=== PATIENT | male | born 1970 | race Caucasian/White ===

== ENCOUNTER 2016-11-14 19:17 | Emergency (ER) | payer OTHER ==
[2016-11-14 19:34] VITALS: BP 133/88; PULSE 76; TEMP 98; BMI 31.0
[2016-11-14] MEDS ORDERED: SODIUM CHLORIDE 1,000 ML IV STA (20:13)
[2016-11-14] MEDS ORDERED: KETOROLAC TROMETHAMINE 30 MG/1 ML VIAL IVPUSH ONE (20:13)
[2016-11-14] MEDS ORDERED: KETOROLAC TROMETHAMINE 30 MG/1 ML VIAL ONE (20:19)
--- NOTE | 2016-11-14 20:24 | PDOC ---
History of Present Illness - General History Source: Patient, Old Records Exam Limitations: No Limitations - History of Present Illness Initial Comments: 11/14/16 20:26 The patient is a 46 year old male, current smoker (1ppd), accompanied by family , with a past medical history HTN, hypercholesterolemia, borderline diabetes, COPD, CAD s/p NC (2009) s/p PCI, and stents x2 who presents to the Emergency Department with left upper quadrant pain since yesterday. The patient was driving when his pain began. His pain is worse when he coughs, sneezes, or moves. The patient took tylenol yesterday and symptoms resolved before worsening at 10 hours ago. He states that his pain is not worse when breathing. He denies nausea, vomiting, fever, diarrhea. <Barrie De La Cruz - Last Filed: 11/14/16 20:26> - General History Source: Patient Exam Limitations: No Limitations <Luis A Marie - Last Filed: 11/14/16 21:37> - General Chief Complaint: Pain Stated Complaint: LUQ PAIN Time Seen by Provider: 11/14/16 19:49 Past History <Barrie De La Cruz - Last Filed: 11/14/16 20:26> - Past Medical History Cardiac Disorders: Yes HTN: Yes Hypercholesterolemia: Yes - Surgical History Cardiac Surgery: Yes (STENTS X 2) - Immunization History Immunization Up to Date: Yes - Psycho/Social/Smoking Cessation Hx Anxiety: No Suicidal Ideation: No Smoking History: Current every day smoker Have you smoked in the past 12 months: Yes Number of Cigarettes Smoked Daily: 20 Information on smoking cessation initiated: Yes 'Breaking Loose' booklet given: 04/09/16 Hx Alcohol Use: Yes Drug/Substance Use Hx: No Substance Use Type: None <Luis A Marie - Last Filed: 11/14/16 21:37> - Past Medical History Allergies/Adverse Reactions: Allergies Allergy/AdvReac Type Severity Reaction Status Date / Time No Known Allergies Allergy Verified 11/14/16 19:27 Home Medications: Ambulatory Orders Metoprolol Tartrate [Lopressor -] 25 mg PO DAILY 01/12/14 Valsartan [Diovan] 40 mg PO DAILY 01/12/14 Aspirin [ASA -] 81 mg PO DAILY tab.chew 12/25/14 Clopidogrel Bisulfate [Plavix -] 75 mg PO DAILY tablet 12/25/14 Rosuvastatin [Crestor -] 20 mg PO HS tablet 12/25/14 Albuterol Sulfate Inhaler - [Ventolin HFA Inhaler -] 1 - 2 inh PO QID #2 inhaler 04/09/16 Methylprednisolone [Medrol Dose Tommy] 4 mg PO ASDIR #21 tablet 04/09/16 Benzonatate [Tessalon Pearls -] 100 mg PO TID PRN #21 capsule 11/14/16 Naproxen [Naprosyn -] 500 mg PO BID PRN #14 tablet 11/14/16 Review of Systems - Review of Systems Able to Perform ROS?: Yes Comments:: 11/14/16 20:26 GENERAL/CONSTITUTIONAL: No fever or chills. No weakness. HEAD, EYES, EARS, NOSE AND THROAT: No change in vision. No ear pain or discharge. No sore throat. CARDIOVASCULAR: No chest pain or shortness of breath. RESPIRATORY: No cough, wheezing, or hemoptysis. GASTROINTESTINAL: (+) Left upper quadrant pain. No nausea, vomiting, diarrhea or constipation. GENITOURINARY: No dysuria, frequency, or change in urination. MUSCULOSKELETAL: No joint or muscle swelling or pain. No neck or back pain. SKIN: No rash NEUROLOGIC: No headache, vertigo, loss of consciousness, or change in strength/ sensation. ENDOCRINE: No increased thirst. No abnormal weight change. HEMATOLOGIC/LYMPHATIC: No anemia, easy bleeding, or history of blood clots. ALLERGIC/IMMUNOLOGIC: No hives or skin allergy. <Barrie De La Cruz - Last Filed: 11/14/16 20:26> *Physical Exam - Vital Signs Last Vital Signs Temp Pulse Resp BP Pulse Ox 98.0 F 76 16 133/88 96 11/14/16 19:19 11/14/16 19:19 11/14/16 19:19 11/14/16 19:19 11/14/16 19:19 - Physical Exam Comments: 11/14/16 20:26 GENERAL: Awake, alert, and fully oriented, in no acute distress HEAD: No signs of trauma EYES: PERRLA, EOMI, sclera anicteric, conjunctiva clear ENT: Auricles normal inspection, hearing grossly normal, nares patent, oropharynx clear without exudates. Moist mucosa NECK: Normal ROM, supple, no lymphadenopathy, JVD, or masses LUNGS: Breath sounds equal, clear to auscultation bilaterally. No wheezes, and no crackles HEART: Regular rate and rhythm, normal S1 and S2, no murmurs, rubs or gallops ABDOMEN: (+) Soft, LUQ tenderness to palpation. normoactive bowel sounds. No guarding, no rebound. No masses EXTREMITIES: Normal range of motion, no edema. No clubbing or cyanosis. No cords, erythema, or tenderness NEUROLOGICAL: Cranial nerves II through XII grossly intact. Normal speech, normal gait SKIN: Warm, Dry, normal turgor, no rashes or lesions noted. <Barrie De La Cruz - Last Filed: 11/14/16 20:26> - Vital Signs Last Vital Signs Temp Pulse Resp BP Pulse Ox 98.0 F 76 16 133/88 96 11/14/16 19:19 11/14/16 19:19 11/14/16 19:19 11/14/16 19:19 11/14/16 19:19 <Luis A Marie - Last Filed: 11/14/16 21:37> Heart Score/ECG Review #1 ECG reviewed & interpreted by me at: 19:20 11/14/16 20:40 NSR 74, no std/radha, normal axis, normal intervals, QTC 432 msec. <Luis A Marie - Last Filed: 11/14/16 21:37> ED Treatment Course - LABORATORY CBC & Chemistry Diagram: 11/14/16 20:15 11/14/16 20:15 - Medications Given in the ED: ED Medications Discontinued Medications Generic Name Dose Route Start Last Admin Trade Name Freq PRN Reason Stop Dose Admin Ketorolac Tromethamine 30 mg 11/14/16 20:13 11/14/16 20:22 Toradol Injection - IVPUSH 11/14/16 20:14 30 mg ONCE ONE Administration <Barrie De La Cruz - Last Filed: 11/14/16 20:26> - LABORATORY CBC & Chemistry Diagram: 11/14/16 20:15 11/14/16 20:15 - RADIOLOGY Radiology Studies Ordered: Category Date Time Status CHEST PA & LAT [RAD] Stat Radiology 11/14/16 20:13 Ordered - Medications Given in the ED: ED Medications Discontinued Medications Generic Name Dose Route Start Last Admin Trade Name Freq PRN Reason Stop Dose Admin Ketorolac Tromethamine 30 mg 11/14/16 20:13 11/14/16 20:22 Toradol Injection - IVPUSH 11/14/16 20:14 30 mg ONCE ONE Administration <Luis A Marie - Last Filed: 11/14/16 21:37> Medical Decision Making - Medical Decision Making 11/14/16 20:40 A portion of this note was documented by scribe services under my direction. I have reviewed the details of the note, within reason, and agree with the documentation with the following case summary and management plan written by me. Patient treated in the ED. Nursing notes are reviewed and incorporated into the medical decision-making. Vital signs reviewed. Peripheral IV access obtained by the nurse, laboratory studies are drawn and sent, reviewed and interpreted by myself. Vital Signs Temp Pulse Resp BP Pulse Ox 98.0 F 76 16 133/88 96 11/14/16 19:19 11/14/16 19:19 11/14/16 19:19 11/14/16 19:19 11/14/16 19:19 46-year-old male with history of hypertension, diabetes, hyperlipidemia, coronary disease status post stents, current smoker presents to the emergency department for left upper quadrant left lower ribs pain since yesterday. Patient was driving his car when he noticed his onset of symptoms. Denies midsternal chest pain or shortness of breath. States that when he palpates his belly or when he moves, it worsens the pain. When he rests completely still, the patient's pain is significantly improved. Denies diarrhea, nausea, vomiting or diaphoresis. This is very unlikely to be acute coronary syndrome or NC at this time. I suspect this is most likely muscle skeletal. The patient is coughing intermittently which exacerbates the pain. We'll obtain a chest x-ray, labs including lipase and treat with IV fluids, Toradol and GERD medications and reassess. 11/14/16 21:33 CBC, BMP 11/14/16 20:15 11/14/16 20:15 CMP Sodium 136 mmol/L (136-145) 11/14/16 20:15 Potassium 3.7 mmol/L (3.5-5.1) 11/14/16 20:15 Chloride 104 mmol/L (98-107) 11/14/16 20:15 Carbon Dioxide 26 mmol/L (22-28) 11/14/16 20:15 Anion Gap 6 (8-16) L 11/14/16 20:15 BUN 13 mg/dl (7-18) 11/14/16 20:15 Creatinine 1.0 mg/dl (0.6-1.3) 11/14/16 20:15 Creat Clearance w eGFR > 60 (>60) 11/14/16 20:15 Random Glucose 105 mg/dl (74-106) 11/14/16 20:15 Calcium 9.3 mg/dl (8.4-10.2) 11/14/16 20:15 Total Bilirubin 0.7 mg/dl (0.2-1.0) 11/14/16 20:15 AST 31 U/L (10-42) 11/14/16 20:15 ALT 47 U/L (10-40) H 11/14/16 20:15 Alkaline Phosphatase 37 U/L (32-92) 11/14/16 20:15 Creatine Kinase 336 IU/L (38-174) H 11/14/16 20:15 CK-MB (CK-2) 4.1 ng/ml (0.3-4.0) H 11/14/16 20:15 CK-MB (CK-2) Rel Index 1.2 % (0.0-5.0) 11/14/16 20:15 Troponin I < 0.03 ng/ml (0.03-0.50) L 11/14/16 20:15 Total Protein 6.9 g/dl (6.4-8.3) 11/14/16 20:15 Albumin 4.2 g/dl (3.5-5.0) 11/14/16 20:15 Lipase 37 U/L (22-51) 11/14/16 20:15 Chest x-ray reviewed by me, pending official radiology read. No acute findings. Patient reports again relief with Toradol. The patient does state that he's been having a cough for one week and the coughing is worse in the pain. After reviewing the case, I suspect that the patient has costochondritis. Supportive care, antitussives and follow-up with PMD. Smoking cessation counseling given. I discussed the physical exam findings, ancillary test results and final diagnoses with the patient. I answered all of the patient's questions. The patient was satisfied with the care received and felt comfortable with the discharge plan and treatment plan. The patient will call their primary care physician within 24 hours to arrange follow-up and will return to the Emergency Department with any new, persistant or worsening symptoms. <Luis A Marie - Last Filed: 11/14/16 21:37> *DC/Admit/Observation/Transfer - Attestations Scribe Attestion: 11/14/16 20:26 Documentation prepared by Barrie De La Cruz, acting as chief medical officer for Luis A Marie MD. <Barrie De La Cruz - Last Filed: 11/14/16 20:26> - Discharge Dispostion Admit: No <Luis A Marie - Last Filed: 11/14/16 21:37> Diagnosis at time of Disposition: Costochondritis - Discharge Dispostion Disposition: HOME Condition at time of disposition: Good - Prescriptions Prescriptions: Naproxen [Naprosyn -] 500 mg PO BID PRN #14 tablet PRN Reason: Pain Benzonatate [Tessalon Pearls -] 100 mg PO TID PRN #21 capsule PRN Reason: Cough - Referrals Referrals: Esdras Hobson MD [Primary Care Provider] - - Patient Instructions Printed Discharge Instructions: DI for Costochondritis Additional Instructions: Your work appeared demonstrate no acute findings. Please take the medication as prescribed for symptom control. Take 100 mg of Tessalon Perles every 8 hours needed for cough. Take 500 mg of naproxen every 12 hours needed for pain. Follow -up with your doctor.
[2016-11-14] MEDS ORDERED: MAG HYDROX/AL HYDROX/SIMETH 30 ML UNIT-DOSE CUP PO ONE (20:39)
[2016-11-14] MEDS ORDERED: FAMOTIDINE 20 MG/50 ML IVPB 50 ML IVPB ONE ×2 (20:39→20:46)
[2016-11-14 20:44] LABS: ALBUMIN 4.2 g/dl (3.5-5.0); ALK PHOS 37 U/L (32-92); ANION GAP 6 (8-16); BASOPHIL 1.8 % (0-2.0); BILIRUBIN,TOTAL 0.7 mg/dl (0.2-1.0); CALCIUM 9.3 mg/dl (8.4-10.2); CO2 26 mmol/L (22-28); CPK(DFH) 336 IU/L (38-174); EOSINOPHIL 6.2 % (0-4.5); GLUCOSE,RANDOM 105 mg/dl (74-106); MCH 30.1 pg (25.7-33.7); MCHC 34.8 g/dl (32.0-35.9); MEAN CELL VOLUME 86.4 fl (80-96); MEAN PLT VOLUME 9.1 fl (7.5-11.1); NEUTROPHILS 38.7 % (42.8-82.8); PLATELET COUNT 264 K/MM3 (134-434); SGOT/AST 31 U/L (10-42); SGPT/ALT 47 U/L (10-40); TOT PROT 6.9 g/dl (6.4-8.3); WHITE BLOOD COUNT 6.4 K/mm3 (4.0-10.8)
[2016-11-14] MEDS ORDERED: MAG HYDROX/AL HYDROX/SIMETH 30 ML UNIT-DOSE CUP ONE (20:46)
[2016-11-14 21:03] LABS: TROPONIN I (DFP) < 0.03 ng/ml (0.03-0.50)
[2016-11-14 21:05] LABS: CK MB 4.1 ng/ml (0.3-4.0)
--- NOTE | 2016-11-17 09:24 | EKG ---
Test Reason : Blood Pressure : / mmHG Vent. Rate : 074 BPM Atrial Rate : 074 BPM P-R Int : 168 ms QRS Dur : 106 ms QT Int : 390 ms P-R-T Axes : 050 053 056 degrees QTc Int : 432 ms NORMAL SINUS RHYTHM POSSIBLE LEFT ATRIAL ENLARGEMENT WHEN COMPARED WITH ECG OF 24-DEC-2014 12:09, VENT. RATE HAS INCREASED BY 27 BPM Confirmed by MD GARCIA MARJORY ([id number]) on 11/17/2016 9:24:14 AM Referred By: DR RASHID Confirmed By:MARIA LUZ GARCIA MD
== END 2016-11-14 21:44 | disposition home or self-care (01) ==
LOC: FER 19:17
PROC: 3E033GC Introduction of Other Therapeutic Substance into Peripheral Vein, Percutaneous Approach (ICD-10-PCS; principal; 2016-11-14)
PROC: 3E0333Z Introduction of Anti-inflammatory into Peripheral Vein, Percutaneous Approach (ICD-10-PCS; 2016-11-14)
PROC: 3E0337Z Introduction of Electrolytic and Water Balance Substance into Peripheral Vein, Percutaneous Approach (ICD-10-PCS; 2016-11-14)
DX: M94.0 Chondrocostal junction syndrome [Tietze] (principal); F17.210 Nicotine dependence, cigarettes, uncomplicated; I10 Essential (primary) hypertension; E78.00 Pure hypercholesterolemia, unspecified; J44.9 Chronic obstructive pulmonary disease, unspecified; I25.10 Atherosclerotic heart disease of native coronary artery without angina pectoris; I25.2 Old myocardial infarction; Z95.5 Presence of coronary angioplasty implant and graft
CPT/HCPCS: 36415; 71020-TC; 80053; 82550; 82553; 83690; 84484; 85025; 93005; 99283-25

== ENCOUNTER 2018-06-19 14:51 | Emergency (ER) | payer OTHER ==
[2018-06-19 15:02] VITALS: BP 126/83; PULSE 62; TEMP 98.4; BMI 27.8
--- NOTE | 2018-06-19 15:47 | PDOC ---
History of Present Illness - General Chief Complaint: Ear Problem Stated Complaint: BLEEDING TO LEFT EAR, HEADACHE Time Seen by Provider: 06/19/18 15:22 History Source: Patient Exam Limitations: No Limitations - History of Present Illness Initial Comments: 47 yo M w a hx of HTN, HLD, GERD, BPH, borderline diabetes, COPD, CAD s/p NE ( 2009) s/p PCI, and stents x2 who presents to the [place] ED because he noticed blood dripping out of his left ear. He admits that about a year ago he had a tube placed in his ear to treat some residual fluid in the ear, however, he does not remember which ear the tube was in. He states that it was very hot in the house but it was bright red blood. He is not complaining of a headache, any LOC, and states he was not nauseous and did not vomit. He denies any SOB or changes in hearing. This has never happened to him before. He does endorse feeling mildly weak, tired, and is experiencing general lethargy. He denies any history of trauma or falling down at any point today. The patient admits that he has been experiencing a significant amount of stress at home and has been screaming a significant amount lately. He got into a heated argument with his sister which he believes is what caused his ear to bleed. Denies any fevers, chills, infections, chest pain, SOB, difficulty breathing, neck pain, headache, abdominal pain, nausea, vomiting, diarrhea, or constipation. Meds: Naproxyn, esomeprazole, aspirin, clopidogrel, Metoprolol, valsartan, Tamsulosin PCP: Esdras Hobson ENT: Dr. Alvarez in [facility]. PSH: 2 stents, nose deviated septum, tubes in ear - unsure which ear likely left , Left thumb surgery Allergies: NKA, NKDA Social Hx: Smokes 1 PPD for 35 years, recreational alcohol, denies other substance usage. Past History - Past Medical History Allergies/Adverse Reactions: Allergies Allergy/AdvReac Type Severity Reaction Status Date / Time No Known Allergies Allergy Verified 06/19/18 14:54 Home Medications: Ambulatory Orders Metoprolol Tartrate [Lopressor -] 25 mg PO DAILY 01/12/14 Valsartan [Diovan] 40 mg PO DAILY 01/12/14 Aspirin [ASA -] 81 mg PO DAILY tab.chew 12/25/14 Clopidogrel Bisulfate [Plavix -] 75 mg PO DAILY tablet 12/25/14 Naproxen/Esomeprazole Mag [Vimovo Dr 500-20 mg Tablet] 1 each PO DAILY 10/05/17 Tamsulosin HCl 0.4 mg PO DAILY 10/05/17 Amoxicillin - [Amoxicillin 500mg Capsule -] 500 mg PO BID #14 capsule 06/19/18 Ofloxacin Otic [Floxin Otic -] 3 drop AD DAILY 15 Days #1 bottle 06/19/18 Cardiac Disorders: Yes (stents, mi 2008) CVA: No COPD: No GI Disorders: No Disorders: No HTN: Yes Hypercholesterolemia: Yes Liver Disease: No Seizures: No Thyroid Disease: No - Surgical History Cardiac Surgery: Yes (STENTS X 2) - Immunization History Immunization Up to Date: Yes - Suicide/Smoking/Psychosocial Hx Smoking History: Current every day smoker Have you smoked in the past 12 months: Yes Number of Cigarettes Smoked Daily: 20 Information on smoking cessation initiated: Yes 'Breaking Loose' booklet given: 10/05/17 Hx Alcohol Use: (occasional) Drug/Substance Use Hx: No Substance Use Type: None Hx Substance Use Treatment: No Review of Systems - Review of Systems Able to Perform ROS?: Yes Comments:: CONSTITUTIONAL: Absent: fever, no chills, no fatigue EYES: Absent: visual changes ENT: Present: Ear pain Absent: no sore throat CARDIOVASCULAR: Absent: chest pain, no palpitations RESPIRATORY: Absent: cough, no SOB GI: Absent: abdominal pain, no nausea, no vomiting, no constipation, no diarrhea GENITOURINARY: Absent: dysuria, no frequency, no hematuria MUSKULOSKELETAL: Absent: back pain, no arthralgia, no myalgia SKIN: Absent: rash NEURO: Absent: headache *Physical Exam - Vital Signs Last Vital Signs Temp Pulse Resp BP Pulse Ox 98.4 F 62 18 126/83 98 06/19/18 14:51 06/19/18 14:51 06/19/18 14:51 06/19/18 14:51 06/19/18 14:51 - Physical Exam Comments: GENERAL: Well-appearing, well-nourished. No apparent distress. LEFT EAR: There is dried blood and the tympanic membrane is perforated. No TTP during otoscopy. HEENT: Normocephalic, atraumatic. PERRLA, EOMI. No conjunctival pallor. Sclera are non- icteric. Moist mucous membranes. Oropharynx is clear. CARDIOVASCULAR: Normal S1, S2. Regular rate and rhythm. PULMONARY: No evidence of respiratory distress. Lungs clear to auscultation bilaterally. No wheezing, rales or rhonchi. ABDOMEN: Soft, non-distended, non-tender. EXTREMITIES: Normal ROM in all four extremities. No gross deformities. SKIN: Warm, dry. No rash NEUROLOGICAL: No focal neurological deficits. Moderate Sedation - Procedure Monitoring Vital Signs: Procedure Monitoring Vital Signs Temperature 98.4 F 06/19/18 14:51 Pulse Rate 62 06/19/18 14:51 Respiratory Rate 18 06/19/18 14:51 Blood Pressure 126/83 06/19/18 14:51 O2 Sat by Pulse Oximetry (%) 98 06/19/18 14:51 Medical Decision Making - Medical Decision Making 47 yo M w a hx of HTN, HLD, GERD, BPH, borderline diabetes, COPD, CAD s/p NE ( 2009) s/p PCI, and stents x2 who presents to the [place] ED because he noticed blood dripping out of his left ear. He admits that about a year ago he had a tube placed in his ear to treat some residual fluid in the ear, however, he does not remember which ear the tube was in. He states that it was very hot in the house but it was bright red blood. He is not complaining of a headache, any LOC, and states he was not nauseous and did not vomit. He denies any SOB or changes in hearing. This has never happened to him before. He does endorse feeling mildly weak, tired, and is experiencing general lethargy. He denies any history of trauma or falling down at any point today. The patient admits that he has been experiencing a significant amount of stress at home and has been screaming a significant amount lately. He got into a heated argument with his sister which he believes is what caused his ear to bleed. VS: WNL. Tympanic membrane is perforated. DDx IBNLT: Tympanic membrane perforation. otitis media vs extrerna, mastoiditis , parotitis. Plan: Clean out ear canal, advise patient to apply cotton swabs, and administer ear drops and Abx, ENT follow up. - A large clot was removed from his ear canal which showed a visible perforation. Amoxicillin and ofloxacin drops sent to pharmacy. *DC/Admit/Observation/Transfer Diagnosis at time of Disposition: Perforated ear drum - Discharge Dispostion Disposition: HOME Condition at time of disposition: Stable Decision to Admit order: No - Prescriptions Prescriptions: Amoxicillin - [Amoxicillin 500mg Capsule -] 500 mg PO BID #14 capsule Ofloxacin Otic [Floxin Otic -] 3 drop AD DAILY 15 Days #1 bottle - Referrals Referrals: Esdras Hobson MD [Primary Care Provider] - Galileo Allen MD [Staff Physician] - - Patient Instructions Printed Discharge Instructions: DI for Tympanic Membrane Perforation-Adult Additional Instructions: You came into the ER with blood dripping from your ear. You have perforated your eardrum. Please see attached handout for further instructions. It is extremely important for you to schedule a follow up appointment with your ENT doctor in the next 24 to 48 hours. If you cannot see yours we are giving you the number of a different doctor you can call to see. Please purchase small cotton balls to place in your ear so the ear canal stays dry. We sent an oral antibiotic to your pharmacy and an antibiotic ear drop to your pharmacy. Please make sure to go and pick these up and take as prescribed. Come back to the ER if your pain worsens, you get a fever, become nauseous, or have any other new or worsening concerns. Thank you for coming to the [place] ER. We hope you feel better soon! Print Language: SLOVAK - Post Discharge Activity
[2018-06-19] MEDS ORDERED: AMOXICILLIN 500 MG CAPSULE (FP) PO ONE (16:36)
[2018-06-19] MEDS ORDERED: OFLOXACIN 0.3% OTIC SOLUTION 5 ML BOTTLE AS ONE (16:37)
--- NOTE | 2018-06-19 16:41 | PDOC ---
Attending Attestation - Resident Resident Name: Michael Hernandez - ED Attending Attestation I have performed the following: I have examined & evaluated the patient, The case was reviewed & discussed with the resident, I agree w/resident's findings & plan - HPI HPI: 06/19/18 16:36 47 yo M w a hx of HTN, HLD, GERD, BPH, borderline diabetes, COPD, CAD s/p PA ( 2009) s/p PCI, and stents x2 who presents to the [place] ED for left ear bleeding. He admits that about a year ago he had a tube placed in his ear to treat some residual fluid in the ear, however, he does not remember which ear the tube was in. He states that it was very hot in the house but it was bright red blood. He also notes he has been yelling and screaming at family members that has been increasing his stress levels in the last several days. diminished hearing from the affected hear. No trauma - Physicial Exam PE: 06/19/18 16:39 agree with resident note. NAD well appearing, EOMI, PERRL, hearing intact to fingers left ear with ruptured TM, blood in auditory canal, no tenderness to pinna manipulation. +blood behind the TM noted. neck supple. WWP, normal skin color. 06/19/18 16:40 - Medical Decision Making 06/19/18 16:40 hpi as documented VS wnl. perf TM, treat as AOM as well topical ofloxacin gtt 2-3 drops daily until closure. oral amoxicillin x 7 days for presumed AOM. ENT followup, referrals given, he has his own ENT as well who he will followup keep ears dry, put in cotton balls to avoid moisture. return precautions. DC in stable condition, pt made aware of impression and plan. avoid elevating intracranial/ear pressures that may have precipitated perf TM
[2018-06-19] MEDS ORDERED: AMOXICILLIN 250 MG CAPSULE ONE (16:48)
== END 2018-06-19 16:55 | disposition home or self-care (01) ==
LOC: FER 14:51
DX: H72.92 Unspecified perforation of tympanic membrane, left ear (principal); I10 Essential (primary) hypertension; E78.5 Hyperlipidemia, unspecified; K21.9 Gastro-esophageal reflux disease without esophagitis; N40.0 Benign prostatic hyperplasia without lower urinary tract symptoms; J44.9 Chronic obstructive pulmonary disease, unspecified; I25.2 Old myocardial infarction; Z95.5 Presence of coronary angioplasty implant and graft; F17.210 Nicotine dependence, cigarettes, uncomplicated
CPT/HCPCS: 99282-25

== ENCOUNTER 2019-12-01 05:38 | Day surgery (SDC) | payer BC ==
[2019-11-30 14:42] VITALS: BMI 27.3
--- NOTE | 2019-12-01 11:14 | HP ---
Admitting History and Physical - Admission Chief Complaint: Axial Neck Pain History of Present Illness: The pt present with axial neck pain secondary to cervical spondylosis. History Source: Patient - Past Medical History Cardiovascular: Yes: CAD, HTN, Hyperlipdemia. No: AFIB, Aneurysm, Aortic Insufficiency, Aortic Stenosis, CHF, Deep Vein Thrombosis, DE, Mitral Insufficiency, Mitral Stenosis, Murmur, Pulmonary Hypertension, Other - Smoking History Smoking history: Current every day smoker Have you smoked in the past 12 months: Yes Aproximately how many cigarettes per day: 20 - Alcohol/Substance Use Hx Alcohol Use: (occasional) Home Medications - Allergies Allergies/Adverse Reactions: Allergies Allergy/AdvReac Type Severity Reaction Status Date / Time No Known Allergies Allergy Verified 12/01/19 09:09 - Home Medications Home Medications: Ambulatory Orders Metoprolol Tartrate [Lopressor -] 25 mg PO DAILY 01/12/14 Clopidogrel Bisulfate [Plavix -] 75 mg PO DAILY tablet 12/25/14 Atorvastatin Ca [Lipitor] 80 mg PO HS 12/01/19 Lisdexamfetamine Dimesylate [Vyvanse] 70 mg PO DAILY 12/01/19 Paroxetine HCl 30 mg PO DAILY 12/01/19 Review of Systems - Review of Systems Constitutional: reports: No Symptoms Eyes: reports: No Symptoms HENT: reports: No Symptoms Neck: reports: No Symptoms Cardiovascular: reports: No Symptoms Respiratory: reports: No Symptoms Gastrointestinal: reports: No Symptoms Genitourinary: reports: No Symptoms Breasts: reports: No Symptoms Reported Musculoskeletal: reports: No Symptoms, Other (Neck PAIN) Integumentary: reports: No Symptoms Neurological: reports: No Symptoms Endocrine: reports: No Symptoms Hematology/Lymphatic: reports: No Symptoms Psychiatric: reports: No Symptoms Physical Examination Vital Signs: Vital Signs Temperature 98.0 F 12/01/19 09:06 Pulse Rate 65 12/01/19 09:06 Respiratory Rate 20 12/01/19 09:06 Blood Pressure 125/88 12/01/19 09:06 O2 Sat by Pulse Oximetry (%) 98 12/01/19 09:06 Constitutional: Yes: Well Nourished, No Distress, Calm Eyes: Yes: WNL, Conjunctiva Clear, EOM Intact HENT: Yes: WNL, Atraumatic, Normocephalic Neck: Yes: Trachea Midline Cardiovascular: Yes: Regular Rate and Rhythm Respiratory: Yes: WNL, Regular Gastrointestinal: Yes: WNL ...Rectal Exam: Yes: WNL Musculoskeletal: Yes: Back Pain Extremities: Yes: WNL Neurological: Yes: WNL ...Motor Strength: WNL Psychiatric: Yes: WNL Imaging - Results MRI: Image Reviewed Assessment/Plan The patients pain is secondary to cervical spondylosis. 1. I will perform right and Left C3 C4 C5 medial branch blocks.
[2019-12-01] MEDS ORDERED: LIDOCAINE 1% P/F 10 MG/ML VIAL INF ONE (11:47)
[2019-12-01] MEDS ORDERED: BUPIVACAINE HCL/PF 0.5% (5 MG/ML) 30 ML VIAL IJ ONE (11:48)
[2019-12-01 12:40] VITALS: BP 130/82; PULSE 60; TEMP 98
--- NOTE | 2019-12-06 14:04 | PROC ---
Procedure Note Procedure: Preprocedure Diagnosis: Cervical Spondylosis Post Procedure Diagnosis:same Anesthesia: local Procedure Performed: Right and Left C3 C4 C5 medial branch block under fluoroscopic guidance After the risks and benefits were explained, informed consent was obtained. The patient was then taken to the procedure room and positioned prone on the procedure table. Time out was performed. The region overlying the appropriate vertebral bodies was identified using fluoroscopy. The skin was prepped and draped in the usual sterile fashion. Using fluoroscopic guidance, 25 gauge 2.5 inch spinal needles were then introduced to the fossa at the center of the waists of the articular pillars where the BILATERAL C3, C4, and C5 medial branches are located. Omnipaque 180 confirmed appropriate needle placement. There was no epidural or vascular flow observed. .25 % bupivacaine was drawn into a syringe. 0.5cc of this solution was then injected at each level. The same procedure was repeated on the LEFT side at the same levels. The patient tolerated the procedure well and there were no complications. The patient was taken to the post procedure recovery area in good condition. Vital signs remained stable before, during, and after the procedure. The patient was given oral and written follow-up instructions. The patient was given a follow up appointment with me in the near future. Jamie King DO
== END 2019-12-01 12:41 | disposition home or self-care (01) ==
LOC: JASU-SURG 05:38
PROVIDERS: ATTEND Pain Medicine Pain Medicine
PROC: BR14YZZ Fluoroscopy of Cervical Facet Joint(s) using Other Contrast (ICD-10-PCS; 2019-12-01)
PROC: 3E0T3BZ Introduction of Anesthetic Agent into Peripheral Nerves and Plexi, Percutaneous Approach (ICD-10-PCS; principal; 2019-12-01 10:30)
DX: M47.892 Other spondylosis, cervical region (principal); I10 Essential (primary) hypertension; I25.10 Atherosclerotic heart disease of native coronary artery without angina pectoris; E78.5 Hyperlipidemia, unspecified; F17.210 Nicotine dependence, cigarettes, uncomplicated
CPT/HCPCS: 76000-TC-FY

== ENCOUNTER 2020-08-01 18:23 | Emergency (ER) | payer BC, OTHER ==
[2020-08-01 18:36] VITALS: BP 132/90; PULSE 77; TEMP 98.9; BMI 28.0
[2020-08-01] MEDS ORDERED: ACETAMINOPHEN 325 MG TABLET (FP) PO ONE (18:40)
[2020-08-01] MEDS ORDERED: ACETAMINOPHEN 325 MG TABLET (FP) ONE (18:43)
== END 2020-08-01 19:45 | disposition home or self-care (01) ==
LOC: FER 18:23
DX: S00.83XA Contusion of other part of head, initial encounter (principal); S43.92XA Sprain of unspecified parts of left shoulder girdle, initial encounter
CPT/HCPCS: 73030-TC-RT-FY; 99284-25

== ENCOUNTER 2021-07-04 04:33 | Day surgery (SDC) | payer BC, OTHER ==
[2021-06-20 14:19] VITALS: BMI 28.0
[2021-07-04] MEDS ORDERED: ROPIVACAINE HCL 0.5% 30ML VIAL ONE (10:30)
[2021-07-04] MEDS ORDERED: MIDAZOLAM HCL 2 MG/2 ML SINGLE DOSE VIAL ONE ×2 (10:31)
[2021-07-04] MEDS ORDERED: ONDANSETRON 4 MG/2 ML VIAL IVPUSH PRN (11:03)
[2021-07-04] MEDS ORDERED: DEXAMETHASONE SOD PHOSPHATE 4 MG/1 ML VIAL ONE (11:20)
[2021-07-04] MEDS ORDERED: ceFAZolin SODIUM 1 GM VIAL ONE (11:20)
[2021-07-04] MEDS ORDERED: PROPOFOL 20 ML ONE ×2 (11:29→11:44)
[2021-07-04] MEDS ORDERED: ceFAZolin SODIUM 1 GM VIAL IVPB ONE (11:38)
[2021-07-04] MEDS ORDERED: PHENYLEPHRINE HCL 10 MG/1 ML SINGLE DOSE VIAL ONE (11:57)
[2021-07-04 16:48] VITALS: BP 115/78; PULSE 78; TEMP 97.2
== END 2021-07-04 16:30 | disposition home or self-care (01) ==
LOC: JASU-SURG 04:33
PROVIDERS: ATTEND Orthopaedic Surgery
PROC: 0RHJ44Z Insertion of Internal Fixation Device into Right Shoulder Joint, Percutaneous Endoscopic Approach (ICD-10-PCS; 2021-07-04)
PROC: 0RNJ4ZZ Release Right Shoulder Joint, Percutaneous Endoscopic Approach (ICD-10-PCS; principal; 2021-07-04 11:30)
PROC: 0LM14ZZ Reattachment of Right Shoulder Tendon, Percutaneous Endoscopic Approach (ICD-10-PCS; 2021-07-04 11:30)
PROC: 0LS34ZZ Reposition Right Upper Arm Tendon, Percutaneous Endoscopic Approach (ICD-10-PCS; 2021-07-04 11:30)
DX: M75.101 Unspecified rotator cuff tear or rupture of right shoulder, not specified as traumatic (principal)
CPT/HCPCS: 94760

== ENCOUNTER 2021-11-27 06:23 | Day surgery (SDC) | payer BC, OTHER ==
[2021-11-25 15:47] VITALS: BMI 27.3
[2021-11-27 07:00] VITALS: RESP 16
[2021-11-27] MEDS ORDERED: LIDOCAINE HCL 1%, 10 MG/ML (20ML VIAL) ONE (07:22)
[2021-11-27] MEDS ORDERED: BUPIVACAINE HCL 50 ML ONE (07:22)
[2021-11-27] MEDS ORDERED: PROPOFOL 20 ML ONE (07:29)
[2021-11-27] MEDS ORDERED: MIDAZOLAM HCL 2 MG/2 ML SINGLE DOSE VIAL ONE (07:30)
[2021-11-27] MEDS ORDERED: SUCCINYLCHOLINE CHLORIDE 200 MG/10 ML SYRINGE ONE (07:30)
[2021-11-27 09:35] VITALS: TEMP 97.6
[2021-11-27 10:43] VITALS: BP 135/75; PULSE 54
== END 2021-11-27 10:10 | disposition home or self-care (01) ==
LOC: FASU 06:23
PROVIDERS: ATTEND Orthopaedic Surgery
PROC: 0LB60ZZ Excision of Left Lower Arm and Wrist Tendon, Open Approach (ICD-10-PCS; 2021-11-27)
PROC: 0LB60ZZ Excision of Left Lower Arm and Wrist Tendon, Open Approach (ICD-10-PCS; 2021-11-27)
PROC: 0LB60ZZ Excision of Left Lower Arm and Wrist Tendon, Open Approach (ICD-10-PCS; 2021-11-27)
PROC: 0LB60ZZ Excision of Left Lower Arm and Wrist Tendon, Open Approach (ICD-10-PCS; 2021-11-27)
PROC: 0LB60ZZ Excision of Left Lower Arm and Wrist Tendon, Open Approach (ICD-10-PCS; 2021-11-27)
PROC: 0LB60ZZ Excision of Left Lower Arm and Wrist Tendon, Open Approach (ICD-10-PCS; 2021-11-27)
PROC: 0LB60ZZ Excision of Left Lower Arm and Wrist Tendon, Open Approach (ICD-10-PCS; 2021-11-27)
PROC: 0LB60ZZ Excision of Left Lower Arm and Wrist Tendon, Open Approach (ICD-10-PCS; 2021-11-27)
PROC: 0LB60ZZ Excision of Left Lower Arm and Wrist Tendon, Open Approach (ICD-10-PCS; 2021-11-27)
PROC: 01N50ZZ Release Median Nerve, Open Approach (ICD-10-PCS; principal; 2021-11-27 08:17)
DX: G56.02 Carpal tunnel syndrome, left upper limb (principal); M65.832 Other synovitis and tenosynovitis, left forearm
CPT/HCPCS: 88304-TC

== ENCOUNTER 2021-12-07 20:01 | Observation (INO) | payer BC ==
[2021-12-07 21:04] LABS: HEMATOCRIT 36.8 % (35.4-49); MCH 29.6 pg (25.7-33.7); MCHC 35.2 g/dl (32.0-35.9); MEAN PLT VOLUME 8.9 fl (7.5-11.1); PLATELET COUNT 200.1 10^3/uL (134-434); RBC 4.38 10^6/uL (4.00-5.60); RDW 15.3 % (11.9-15.9); WHITE BLOOD COUNT 5.6 10^3/uL (4.0-10.8)
[2021-12-07 21:12] LABS: INR 1.02 (0.83-1.09); PROTHROMBIN TIME (PATIENT) 11.7 SEC (9.7-13.0)
[2021-12-07 21:15] LABS: ACTIVATED PTT 30.5 SECONDS (25.2-36.5)
[2021-12-07 21:19] LABS: ALBUMIN 4.1 g/dl (3.4-5.0); CALCIUM 9.2 mg/dl (8.5-10); CREATININE 0.8 mg/dl (0.55-1.3); TOT PROT 7.2 g/dl (6.4-8.2)
[2021-12-07] MEDS ORDERED: ACETAMINOPHEN 1000 MG/100 ML BAG IVPB ONE (23:41)
[2021-12-07] MEDS ORDERED: ACETAMINOPHEN INJECTION 100 ML IVPB ONE (23:45)
[2021-12-08] MEDS ORDERED: ACETAMINOPHEN 325 MG TABLET (FP) PO PRN (01:54)
[2021-12-08 02:03] LABS: EOS % 1.9 % (0-4.5); HEMATOCRIT 36.9 % (35.4-49); HEMOGLOBIN 12.3 GM/dL (11.7-16.9); LYMPH % 44.5 % (8-40); MCHC 33.5 g/dl (32.0-35.9); MEAN CELL VOLUME 83.6 fl (80-96); MEAN PLT VOLUME 9.3 fl (7.5-11.1); MONO % 8.5 % (3.8-10.2); NEUT % 45.1 % (42.8-82.8); PLATELET COUNT 199 10^3/uL (134-434); RBC 4.41 M/mm3 (4.00-5.60); RDW 14.7 % (11.9-15.9)
[2021-12-08 04:58] VITALS: BMI 26.9
[2021-12-08 08:13] LABS: CALCIUM 9.1 mg/dl (8.5-10); CREATININE 0.8 mg/dl (0.55-1.3)
[2021-12-08] MEDS ORDERED: ASPIRIN 81 MG CHEWABLE TABLETS PO SCH (10:00)
[2021-12-08] MEDS ORDERED: METOPROLOL TARTRATE 25 MG TABLET (FP) PO SCH ×2 (10:00)
[2021-12-08] MEDS ORDERED: LOSARTAN POTASSIUM 25 MG TABLET PO SCH (10:00)
[2021-12-08] MEDS ORDERED: NICOTINE 21 MG/24 HOURS TOPICAL PATCH TD SCH (10:00)
[2021-12-08] MEDS ORDERED: PANTOPRAZOLE 20 MG TABLET PO SCH (10:00)
[2021-12-08] MEDS ORDERED: LISDEXAMFETAMINE DIMESYLATE 70 MG PO SCH (10:00)
[2021-12-08 10:07] LABS: BASO % 0.2 % (0-2.0); HEMATOCRIT 38.4 % (35.4-49); HEMOGLOBIN 12.8 GM/dL (11.7-16.9); LYMPH % 33.6 % (8-40); MCH 27.8 pg (25.7-33.7); MCHC 33.3 g/dl (32.0-35.9); MEAN CELL VOLUME 83.4 fl (80-96); MEAN PLT VOLUME 9.3 fl (7.5-11.1); MONO % 7.1 % (3.8-10.2); NEUT % 57.1 % (42.8-82.8); PLATELET COUNT 191 10^3/uL (134-434); RDW 14.8 % (11.9-15.9); WHITE BLOOD COUNT 7.2 K/mm3 (4.0-10.0)
[2021-12-08 18:06] VITALS: BP 127/78; PULSE 59; RESP 19; TEMP 99.8
[2021-12-08] MEDS ORDERED: D5-1/2NS+20 MEQ KCL - 20 MEQ/1,000 ML INFUS.BAG IV SCH (18:15)
[2021-12-08] MEDS ORDERED: CEFUROXIME AXETIL 500 MG TABLET PO SCH (22:00)
[2021-12-08] MEDS ORDERED: ATORVASTATIN CA 20 MG TABLET (FP) PO SCH (22:00)
== END 2021-12-08 19:08 | disposition home or self-care (01) ==
LOC: FER 20:01 → FM/S 21:59 → INTOOBSV 12-08 04:28 → UNDOADMOB 12-08 04:28
PROVIDERS: ADMIT Hospitalist; ATTEND Family Medicine
PROC: 3E033NZ Introduction of Analgesics, Hypnotics, Sedatives into Peripheral Vein, Percutaneous Approach (ICD-10-PCS; principal; 2021-12-07)
DX: R31.9 Hematuria, unspecified (principal); N20.0 Calculus of kidney; I25.10 Atherosclerotic heart disease of native coronary artery without angina pectoris; I11.9 Hypertensive heart disease without heart failure; N13.30 Unspecified hydronephrosis; R04.2 Hemoptysis; F17.210 Nicotine dependence, cigarettes, uncomplicated
CPT/HCPCS: 36415; 71275-TC; 74174-TC; 80048; 80053; 81003; 81015; 82272; 84484; 85025; 85027; 85362; 85379; 85384; 85610; 85670; 85730; 86850; 86900; 86901; 87086; 93005; 96374; 99285-25; C9803-CS; G0378; Q9967; U0003; U0005

== ENCOUNTER 2022-11-07 21:53 | Emergency (ER) | payer BC ==
[2022-11-07 22:01] VITALS: BP 110/70; PULSE 80; RESP 16; TEMP 98.2; BMI 27.0
[2022-11-07 23:22] LABS: HEMATOCRIT 36.3 % (35.4-49); HEMOGLOBIN 12.4 G/dL (11.7-16.9); MCH 30.4 pg (25.7-33.7); MCHC 34.1 g/dl (32.0-35.9); MEAN PLT VOLUME 9.2 fl (7.5-11.1); PLATELET COUNT 175.3 10^3/uL (134-434); RBC 4.08 10^6/uL (4.00-5.60); RDW 14.5 % (11.9-15.9); WHITE BLOOD COUNT 5.1 10^3/uL (4.0-10.8)
[2022-11-07 23:38] LABS: ALBUMIN 4.2 g/dl (3.4-5.0); BILIRUBIN,TOTAL 0.6 mg/dl (0.2-1); BLOOD UREA NITROGEN 12.3 mg/dl (7-18); CREATININE 0.9 mg/dl (0.6-1.3); POTASSIUM 3.6 mmol/L (3.5-5.1); SGOT/AST 29.7 U/L (15-37); SGPT/ALT 38.4 U/L (7-52); TOT PROT 6.3 g/dl (6.4-8.2)
== END 2022-11-08 02:26 | disposition home or self-care (01) ==
LOC: FER 21:53
DX: R06.00 Dyspnea, unspecified (principal); R53.83 Other fatigue; R05.9 Cough, unspecified
CPT/HCPCS: 36415; 71046-TC-FY; 71275-TC; 80053; 84484; 85027; 85379; 93005; 99285-25; Q9967

== ENCOUNTER 2023-03-12 12:18 | Emergency (ER) | payer OTHER, BC ==
[2023-03-12 12:43] VITALS: BP 111/70; PULSE 83; RESP 18; TEMP 97.9; BMI 24.3
[2023-03-12] MEDS ORDERED: KETOROLAC TROMETHAMINE 30 MG/1 ML VIAL IM ONE (13:08)
[2023-03-12] MEDS ORDERED: diazePAM 5 MG TABLET PO ONE (13:08)
[2023-03-12] MEDS ORDERED: IBUPROFEN 600 MG TABLET (FP) PO ONE (13:08)
[2023-03-12] MEDS ORDERED: LIDOCAINE 5% TOPICAL PATCH TP ONE (13:09)
[2023-03-12] MEDS ORDERED: KETOROLAC TROMETHAMINE 30 MG/1 ML VIAL ONE (13:13)
[2023-03-12] MEDS ORDERED: diazePAM 5 MG TABLET ONE (13:14)
[2023-03-12] MEDS ORDERED: LIDOCAINE 5% TOPICAL PATCH ONE (13:14)
== END 2023-03-12 14:19 | disposition home or self-care (01) ==
LOC: FER 12:18
PROC: 3E0233Z Introduction of Anti-inflammatory into Muscle, Percutaneous Approach (ICD-10-PCS; principal; 2023-03-12)
DX: M54.50 Low back pain, unspecified (principal); S39.012A Strain of muscle, fascia and tendon of lower back, initial encounter; W01.0XXA Fall on same level from slipping, tripping and stumbling without subsequent striking against object, initial encounter; Y99.0 Civilian activity done for income or pay
CPT/HCPCS: 99284-25

== ENCOUNTER 2023-05-30 19:41 | Emergency (ER) | payer BC ==
[2023-05-30] MEDS ORDERED: SODIUM CHLORIDE 1,000 ML IV ONE (19:48)
[2023-05-30] MEDS ORDERED: ONDANSETRON 4 MG/2 ML VIAL IVPB ONE (19:49)
[2023-05-30 19:57] VITALS: BP 123/75; PULSE 67; RESP 16; TEMP 99.2; BMI 25.1
[2023-05-30] MEDS ORDERED: ONDANSETRON 4 MG/2 ML VIAL ONE (20:03)
[2023-05-30 20:15] LABS: HEMATOCRIT 40.4 % (35.4-49); HEMOGLOBIN 13.8 G/dL (11.7-16.9); MCH 31.2 pg (25.7-33.7); MCHC 34.1 g/dl (32.0-35.9); MEAN CELL VOLUME 91.5 fl (80-96); MEAN PLT VOLUME 8.9 fl (7.5-11.1); PLATELET COUNT 185.8 10^3/uL (134-434); RBC 4.41 10^6/uL (4.00-5.60); RDW 14.8 % (11.9-15.9); WHITE BLOOD COUNT 3.3 10^3/uL (4.0-10.8)
[2023-05-30 20:31] LABS: ALBUMIN 4.4 g/dl (3.4-5.0); BILIRUBIN,TOTAL 0.8 mg/dl (0.2-1); CREATININE 0.7 mg/dl (0.6-1.3); PHOSPHOROUS 2.9 (2.5-4.9); POTASSIUM 3.3 mmol/L (3.5-5.1); TOT PROT 6.8 g/dl (6.4-8.2)
[2023-05-30] MEDS ORDERED: POTASSIUM CHLORIDE TABS 20 MEQ TABLET.ER (FP) PO ONE ×2 (21:27→21:33)
== END 2023-05-30 21:39 | disposition home or self-care (01) ==
LOC: FER 19:41
PROC: 3E033GC Introduction of Other Therapeutic Substance into Peripheral Vein, Percutaneous Approach (ICD-10-PCS; principal; 2023-05-30)
PROC: 3E0337Z Introduction of Electrolytic and Water Balance Substance into Peripheral Vein, Percutaneous Approach (ICD-10-PCS; 2023-05-30)
DX: R11.2 Nausea with vomiting, unspecified (principal); R19.7 Diarrhea, unspecified; Z20.822 Contact with and (suspected) exposure to COVID-19
CPT/HCPCS: 0241U-QW; 36415; 80053; 83735; 84100; 85027; 99284-25

== ENCOUNTER 2023-08-30 04:56 | Emergency (ER) | payer BC ==
[2023-08-30] MEDS ORDERED: KETOROLAC TROMETHAMINE 30 MG/1 ML VIAL ONE (05:04)
[2023-08-30] MEDS ORDERED: ONDANSETRON 4 MG/2 ML VIAL ONE (05:05)
[2023-08-30] MEDS: KETOROLAC TROMETHAMINE 30 MG/1 ML VIAL IVPUSH ONE (05:13)
[2023-08-30] MEDS: SODIUM CHLORIDE 1,000 ML IV ONE (05:13)
[2023-08-30] MEDS: ONDANSETRON 4 MG/2 ML VIAL IVPB ONE (05:13)
[2023-08-30 05:19] VITALS: BP 166/96; PULSE 64; RESP 20; TEMP 97.8; BMI 25.8
[2023-08-30 06:36] LABS: POTASSIUM 3.3 mmol/L (3.5-5.1)
[2023-08-30 06:40] LABS: ALBUMIN 3.8 g/dl (3.4-5.0); BLOOD UREA NITROGEN 14.9 mg/dL (7-18)
[2023-08-30 06:43] LABS: CREATININE 0.7 mg/dL (0.55-1.3)
[2023-08-30 06:44] LABS: BILIRUBIN,TOTAL 0.7 mg/dL (0.2-1)
[2023-08-30 06:45] LABS: TOT PROT 6.9 g/dl (6.4-8.2)
[2023-08-30 06:50] LABS: HEMATOCRIT 38.7 % (35.4-49); MCH 29.8 pg (25.7-33.7); MCHC 33.7 g/dl (32.0-35.9); MEAN CELL VOLUME 88.4 fl (80-96); PLATELET COUNT 225 10^3/uL (134-434); RBC 4.38 M/mm3 (4.00-5.60); RDW 13.5 % (11.9-15.9); WHITE BLOOD COUNT 6.8 K/mm3 (4.0-10.0)
[2023-08-30 08:00] LABS: EPITHELIAL CELLS 0-5 /hpf
== END 2023-08-30 09:13 | disposition home or self-care (01) ==
LOC: FER 04:56
PROC: 3E0333Z Introduction of Anti-inflammatory into Peripheral Vein, Percutaneous Approach (ICD-10-PCS; principal; 2023-08-30)
PROC: 3E033GC Introduction of Other Therapeutic Substance into Peripheral Vein, Percutaneous Approach (ICD-10-PCS; 2023-08-30)
PROC: 3E0337Z Introduction of Electrolytic and Water Balance Substance into Peripheral Vein, Percutaneous Approach (ICD-10-PCS; 2023-08-30)
DX: R10.31 Right lower quadrant pain (principal); N20.0 Calculus of kidney
CPT/HCPCS: 36415; 74176-TC; 80053; 81003; 81015; 85027; 99284-25